=== PATIENT | female | born 1945 | race Caucasian/White ===

== ENCOUNTER → 2016-12-26 | Outpatient (CLI) | payer MEDICARE, OTHER ==
[2016-12-26 12:39] LABS: Basophils # (auto) 0 uL; Basophils % (auto) 0.2 % (0.0-2.0); Eosinophils # (auto) 0.2 uL; Eosinophils % (auto) 1.6 % (0.0-7.0); Hemoglobin 13.9 g/dL (12.2-16.2); Lymphocytes # (auto) 1.5 uL; Lymphocytes % (auto) 11.1 % (10.0-50.0); Mean Corpuscular Hemoglobin 29.5 pg (28.0-32.0); Mean Corpuscular Hgb Conc. 32.2 g/dL (32.0-36.0); Mean Corpuscular Volume 91.7 fL (80.0-100.0); Mean Platelet Volume 9.8 fL (7.4-10.4); Monocytes # (auto) 0.7 uL; Monocytes % (auto) 5.6 % (0.0-12.0); Neutrophils # (auto) 10.8 uL; Neutrophils % (auto) 81.5 % (37.0-80.0); Platelet Count (auto) 245 10^3/uL (140-450); Red Cell Distribution Width 15.4 % (11.6-16.0); White Blood Cell 13.2 10^3/uL (4.4-10.8)
[2016-12-26 13:14] LABS: Albumin 3.6 g/dL (3.4-5.0); BUN/Creatinine Ratio 15.3; Bilirubin, Direct 0.1 mg/dL (0-0.2); Bilirubin, Total 0.5 mg/dL (0.2-1.0); Calcium 8.7 mg/dL (8.5-10.1); Potassium 3.7 mmol/L (3.5-5.1); Total Protein 7.2 g/dL (6.4-8.2)
== END | disposition home or self-care (01) ==
LOC: LAB 08:59
PROVIDERS: ATTEND Internal Medicine Cardiovascular Disease
DX: I10 Essential (primary) hypertension (principal); E78.00 Pure hypercholesterolemia, unspecified; K74.1 Hepatic sclerosis; E11.9 Type 2 diabetes mellitus without complications; E03.9 Hypothyroidism, unspecified; D64.9 Anemia, unspecified; E55.9 Vitamin D deficiency, unspecified; N39.0 Urinary tract infection, site not specified
CPT/HCPCS: 36415; 80048; 80061; 80076; 82306; 83036; 84443; 85025

== ENCOUNTER → 2017-01-16 | Outpatient (CLI) | payer MEDICARE | END | disposition home or self-care (01) | LOC: HDHVI->DVH 15:07 | PROVIDERS: ATTEND Internal Medicine Cardiovascular Disease | DX: J44.9 Chronic obstructive pulmonary disease, unspecified (principal); I10 Essential (primary) hypertension; M19.90 Unspecified osteoarthritis, unspecified site | CPT/HCPCS: 93306 ==

== ENCOUNTER → 2017-02-05 | Outpatient (CLI) | payer MEDICARE ==
[2017-02-05 12:42] LABS: BUN/Creatinine Ratio 13.3; Calcium 9.3 mg/dL (8.5-10.1)
[2017-02-05 17:00] LABS: Urine Bilirubin Negative (Negative); Urine Blood Negative /uL (Negative); Urine Color Colorless (Yellow); Urine Glucose Normal (Normal); Urine Ketone Negative (Negative); Urine Nitrite Negative (Negative); Urine Urobilinogen Normal (Negative)
== END | disposition home or self-care (01) ==
LOC: LAB 09:01
PROVIDERS: ATTEND Internal Medicine Cardiovascular Disease
DX: I10 Essential (primary) hypertension (principal); E11.9 Type 2 diabetes mellitus without complications
CPT/HCPCS: 36415; 80048; 81003; 83036; 87086

== ENCOUNTER → 2017-04-03 | Outpatient (CLI) | payer MEDICARE ==
[2017-04-03 16:23] LABS: Basophils # (auto) 0 uL; Basophils % (auto) 0.4 % (0.0-2.0); CONDITION Y; Eosinophils # (auto) 0.2 uL; Eosinophils % (auto) 1.9 % (0.0-7.0); Hematocrit 42.1 % (36.0-46.0); Hemoglobin 13.9 g/dL (12.2-16.2); Lymphocytes # (auto) 1.8 uL; Lymphocytes % (auto) 21.7 % (10.0-50.0); Mean Corpuscular Hemoglobin 28.8 pg (28.0-32.0); Mean Corpuscular Hgb Conc. 33.1 g/dL (32.0-36.0); Mean Corpuscular Volume 86.9 fL (80.0-100.0); Mean Platelet Volume 9.7 fL (7.4-10.4); Monocytes % (auto) 11.4 % (0.0-12.0); Neutrophils # (auto) 5.4 uL; Neutrophils % (auto) 64.6 % (37.0-80.0); Platelet Count (auto) 250 10^3/uL (140-450); Red Cell Distribution Width 15.9 % (11.6-16.0); White Blood Cell 8.4 10^3/uL (4.4-10.8)
[2017-04-03 16:45] LABS: BUN/Creatinine Ratio 23.1; Bilirubin, Total 0.6 mg/dL (0.2-1.0); Total Protein 7.4 g/dL (6.4-8.2)
== END | disposition home or self-care (01) ==
LOC: LAB 12:30
PROVIDERS: ATTEND Internal Medicine Cardiovascular Disease
DX: I10 Essential (primary) hypertension (principal); D64.9 Anemia, unspecified; R70.0 Elevated erythrocyte sedimentation rate; R79.82 Elevated C-reactive protein (CRP)
CPT/HCPCS: 36415; 80053; 85025; 85652; 86141

== ENCOUNTER → 2017-05-21 | Outpatient (CLI) | payer MEDICARE | END | disposition home or self-care (01) | LOC: Rad HDHVI 13:56 | PROVIDERS: ATTEND Internal Medicine Cardiovascular Disease | DX: I87.2 Venous insufficiency (chronic) (peripheral) (principal); R00.2 Palpitations | CPT/HCPCS: 93306 ==

== ENCOUNTER → 2017-06-02 | Outpatient (CLI) | payer MEDICARE ==
[~2017-06-02] VITALS: Ht 160 cm; Wt 78.5 kg
[~2017-06-02] MED LIST: ADENOSINE 66 MG in GIVE UN-DILUTED 0 ML IV ONE; ADENOSINE 90 MG/30 ML INJ IV ONE
== END | disposition home or self-care (01) ==
LOC: Rad HDHVI 13:40
PROVIDERS: ATTEND Internal Medicine Cardiovascular Disease
DX: I10 Essential (primary) hypertension (principal); J44.9 Chronic obstructive pulmonary disease, unspecified
CPT/HCPCS: 78452; 93005; 96374; 96375; A9500; J0153

== ENCOUNTER → 2017-07-04 | Outpatient (CLI) | payer MEDICARE ==
[~2017-07-04] VITALS: Ht 160 cm; Wt 78.9 kg
[~2017-07-04] MED LIST changes: -ADENOSINE 66 MG in GIVE UN-DILUTED 0 ML IV ONE; -ADENOSINE 90 MG/30 ML INJ IV ONE; +ASPI325T4 PO; +CHOL20007 PO; +CHOLCAP4 OR; +CLOP75TA41 PO; +DOXY100C2 PO; +ESCI20TA PO; +PANT40TA2 PO; +POTA10TA51 PO
[2017-07-04 09:30] VITALS: BP 109/51
[2017-07-04 10:00] VITALS: BP 107/61
[2017-07-04 13:06] LABS: Basophils # (auto) 0.1 uL; Basophils % (auto) 0.7 % (0.0-2.0); Eosinophils # (auto) 0.2 uL; Eosinophils % (auto) 2.4 % (0.0-7.0); Hematocrit 43.3 % (36.0-46.0); Hemoglobin 14.4 g/dL (12.2-16.2); Lymphocytes % (auto) 24.1 % (10.0-50.0); Mean Corpuscular Hemoglobin 30.3 pg (28.0-32.0); Mean Corpuscular Hgb Conc. 33.2 g/dL (32.0-36.0); Mean Corpuscular Volume 91.3 fL (80.0-100.0); Mean Platelet Volume 9.5 fL (6.9-10.8); Monocytes # (auto) 1.1 uL; Monocytes % (auto) 12.8 % (0.0-12.0); Nucleated Red Blood Cells % 0.3 %; Platelet Count (auto) 201 10^3/uL (140-450); White Blood Cell 8.3 10^3/uL (4.4-10.8)
[2017-07-04 13:15] LABS: INR 0.98 (0.9-1.15); Partial Thromboplastin Time 23.3 sec (22.64-33.71); Prothrombin Time 10.7 sec (9.37-12.3)
[2017-07-04 13:18] LABS: BUN/Creatinine Ratio 20.9; Calcium 8.9 mg/dL (8.5-10.1)
== END | disposition home or self-care (01) ==
LOC: Rad HDHVI 09:06
PROVIDERS: ATTEND Internal Medicine Cardiovascular Disease
DX: Z01.818 Encounter for other preprocedural examination (principal); I10 Essential (primary) hypertension; D64.9 Anemia, unspecified; R79.1 Abnormal coagulation profile
CPT/HCPCS: 36415; 71020; 80048; 85025; 85610; 85730; 93005; G0463

== ENCOUNTER 2017-07-08 12:11 | Day surgery (SDC) | payer MEDICARE ==
[2017-07-08] MEDS ORDERED: LIDOCAINE 2%HCL (LOCAL ANESTH.) INJ 20ML MDV ONE (12:38)
[2017-07-08] MEDS ORDERED: IOHEXOL 350 MG/ML 100ML IJ ONE (12:38)
[2017-07-08] MEDS ORDERED: fentaNYL CITRATE 100 MCG/2 ML VL ONE (14:52)
[2017-07-08] MEDS ORDERED: MIDAZOLAM HCL 1MG/1ML-2 ML VIAL ONE (14:52)
[2017-07-08] MEDS ORDERED: SODIUM CHL 0.9% 0 ML ONE (14:55)
[2017-07-08] MEDS ORDERED: ANGIOMAX 250 MG VIAL IV ONE (14:55)
[2017-07-08] MEDS ORDERED: cloNIDine HCL 0.1 MG TAB ONE (16:39)
[2017-07-08] MEDS ORDERED: cloNIDine HCL 0.1 MG TAB PO ONE (16:45)
== END 2017-07-08 17:30 | disposition home or self-care (01) ==
LOC: CATH 12:11
PROVIDERS: ATTEND Internal Medicine Cardiovascular Disease
DX: R94.39 Abnormal result of other cardiovascular function study (principal); I11.9 Hypertensive heart disease without heart failure; J44.9 Chronic obstructive pulmonary disease, unspecified; Z87.891 Personal history of nicotine dependence
CPT/HCPCS: 93458; C1894; J1644; J2250; J3010; J7030; Q9967; 99152; 99153

== ENCOUNTER → 2017-11-26 | Outpatient (CLI) | payer MEDICARE ==
[~2017-11-26] VITALS: Ht 160 cm; Wt 82.6 kg
[~2017-11-26] MED LIST changes: +ADENOSINE 69 MG in GIVE UN-DILUTED 0 ML IV ONE; +ADENOSINE 90 MG/30 ML INJ IV ONE
== END | disposition home or self-care (01) ==
LOC: Rad HDHVI 10:46
PROVIDERS: ATTEND Internal Medicine Cardiovascular Disease
DX: I10 Essential (primary) hypertension (principal); E78.5 Hyperlipidemia, unspecified; F32.9 Major depressive disorder, single episode, unspecified; J44.9 Chronic obstructive pulmonary disease, unspecified; E11.9 Type 2 diabetes mellitus without complications
CPT/HCPCS: 78452; 93005; 96374; 96375; A9500; J0153

== ENCOUNTER → 2017-12-11 | Outpatient (CLI) | payer MEDICARE ==
[~2017-12-11] MED LIST changes: -ADENOSINE 69 MG in GIVE UN-DILUTED 0 ML IV ONE; -ADENOSINE 90 MG/30 ML INJ IV ONE; +IOHEXOL 350 MG/ML 100ML IJ ONE; +METOPROLOL TARTRATE 1MG/1ML-5ML VIAL IV ONE; +METOPROLOL TARTRATE 1MG/1ML-5ML VIAL IV SCH; +NITROGLYCERIN 0.4 MG SL TAB SL ONE
[2017-12-11 09:05] VITALS: BP 135/71
[2017-12-11 11:20] VITALS: BP 134/59
== END | disposition home or self-care (01) ==
LOC: Rad HDHVI 08:57
PROVIDERS: ATTEND Internal Medicine Cardiovascular Disease
DX: J44.9 Chronic obstructive pulmonary disease, unspecified (principal); I10 Essential (primary) hypertension; M19.90 Unspecified osteoarthritis, unspecified site; I25.10 Atherosclerotic heart disease of native coronary artery without angina pectoris
CPT/HCPCS: 75574; 82565; 96374; 96375; G0463; Q9967

== ENCOUNTER → 2018-03-06 | Outpatient (CLI) | payer MEDICARE ==
[~2018-03-06] MED LIST changes: -METOPROLOL TARTRATE 1MG/1ML-5ML VIAL IV ONE; -METOPROLOL TARTRATE 1MG/1ML-5ML VIAL IV SCH; -NITROGLYCERIN 0.4 MG SL TAB SL ONE
[2018-03-06 10:17] VITALS: BP 105/54
[2018-03-06 10:50] VITALS: BP 122/70
== END | disposition home or self-care (01) ==
LOC: Rad HDHVI 10:04
PROVIDERS: ATTEND Internal Medicine
DX: K57.30 Diverticulosis of large intestine without perforation or abscess without bleeding (principal); K44.9 Diaphragmatic hernia without obstruction or gangrene; I70.0 Atherosclerosis of aorta; E11.9 Type 2 diabetes mellitus without complications; J44.9 Chronic obstructive pulmonary disease, unspecified; I10 Essential (primary) hypertension; E78.5 Hyperlipidemia, unspecified; E03.9 Hypothyroidism, unspecified; E78.00 Pure hypercholesterolemia, unspecified; Z87.891 Personal history of nicotine dependence
CPT/HCPCS: 74177; 82565; G0463; Q9967

== ENCOUNTER → 2018-05-28 | Outpatient (CLI) | payer MEDICARE ==
[~2018-05-28] MED LIST changes: -IOHEXOL 350 MG/ML 100ML IJ ONE
[2018-05-28 16:43] LABS: Albumin 3.3 g/dL (3.4-5.0); BUN/Creatinine Ratio 12.6; Bilirubin, Total 0.4 mg/dL (0.2-1.0); Calcium 8.7 mg/dL (8.5-10.1); Potassium 4.3 mmol/L (3.5-5.1); Total Protein 7.3 g/dL (6.4-8.2); Uric Acid 10.9 mg/dL (2.6-6.0)
== END | disposition home or self-care (01) ==
LOC: LAB 12:40
PROVIDERS: ATTEND Internal Medicine
DX: I10 Essential (primary) hypertension (principal); M10.9 Gout, unspecified; R70.0 Elevated erythrocyte sedimentation rate; R79.82 Elevated C-reactive protein (CRP)
CPT/HCPCS: 36415; 80053; 84550; 85652; 86141

== ENCOUNTER 2018-09-16 11:26 | Emergency (ER) | payer MEDICARE ==
[~2018-09-16] VITALS: Ht 160 cm; Wt 79.8 kg
[2018-09-16 13:43] LABS: Basophils # (auto) 0.1 uL; Basophils % (auto) 0.9 % (0.0-2.0); Eosinophils # (auto) 0.1 uL; Eosinophils % (auto) 1.1 % (0.0-7.0); Hematocrit 46.1 % (36.0-46.0); Hemoglobin 15.1 g/dL (12.2-16.2); Lymphocytes # (auto) 1.9 uL; Lymphocytes % (auto) 19.7 % (10.0-50.0); Mean Corpuscular Hemoglobin 30.9 pg (28.0-32.0); Mean Corpuscular Hgb Conc. 32.7 g/dL (32.0-36.0); Mean Corpuscular Volume 94.5 fL (80.0-100.0); Monocytes % (auto) 11.1 % (0.0-12.0); Neutrophils # (auto) 6.4 uL; Neutrophils % (auto) 67.2 % (37.0-80.0); Nucleated Red Blood Cells % 0.1 %; Platelet Count (auto) 219 10^3/uL (140-450); Red Blood Cells 4.88 10^6/uL (4.0-5.20); Red Cell Distribution Width 17.5 % (11.8-14.3); White Blood Cell 9.5 10^3/uL (4.4-10.8)
[2018-09-16 14:02] LABS: Magnesium 2.1 mg/dL (1.6-2.6)
[2018-09-16] MEDS ORDERED: ONDANSETRON HCL 4 MG/2 ML VIAL IV ONE (14:15)
[2018-09-16] MEDS ORDERED: PANTOPRAZOLE 40 MG/10 ML VIAL IV ONE (14:30)
[2018-09-16 14:46] LABS: Urine Bacteria FEW /hpf (None Seen); Urine Blood Negative /uL (Negative); Urine Hyaline Cast FEW /lpf (0 - 2); Urine Specific Gravity 1.018 (1.001-1.035); Urine WBC 7 /hpf (0 - 5); Urine WBC Clumps PRESENT /hpf (None Seen)
[2018-09-16] MEDS ORDERED: cefTRIAXone 1GM/50ML D5W 50 ML IV ONE (15:15)
[2018-09-16 15:52] LABS: Anion Gap 8 (5-15); Blood Urea Nitrogen 29 mg/dL (7-18); Carbon Dioxide 27 mmol/L (21-32); Chloride 107 mmol/L (98-107); Glucose 90 mg/dL (74-106); Potassium 3.8 mmol/L (3.5-5.1); Sodium 142 mmol/L (136-145)
[2018-09-16 15:53] LABS: Alanine Aminotransferase 19 U/L (13-56); Albumin 3.3 g/dL (3.4-5.0); Alkaline Phosphatase 109 U/L (45-117); Aspartate Aminotransferase 20 U/L (15-37); Bilirubin, Total 0.5 mg/dL (0.2-1.0); Calcium 8.6 mg/dL (8.5-10.1); GFR African American 46 mL/min; GFR Non-African American 38 mL/min; Total Protein 6.2 g/dL (6.4-8.2)
[2018-09-16 19:33] VITALS: BP 151/84
== END 2018-09-16 19:51 | disposition home or self-care (01) ==
LOC: ER 11:31
DX: N39.0 Urinary tract infection, site not specified (principal); K57.90 Diverticulosis of intestine, part unspecified, without perforation or abscess without bleeding; K21.9 Gastro-esophageal reflux disease without esophagitis; E78.00 Pure hypercholesterolemia, unspecified; I10 Essential (primary) hypertension; Z79.2 Long term (current) use of antibiotics; Z79.01 Long term (current) use of anticoagulants; Z79.82 Long term (current) use of aspirin; Z79.899 Other long term (current) drug therapy; Z88.0 Allergy status to penicillin; Z88.8 Allergy status to other drugs, medicaments and biological substances
CPT/HCPCS: 36415; 71045; 74176; 80053; 81001; 82150; 83690; 83735; 84484; 85025; 93005; 94761; 96365; 96375; 99284; C9113; J0696; J2405

== ENCOUNTER → 2018-10-20 | Outpatient (CLI) | payer MEDICARE ==
[2018-10-20 16:24] LABS: Urine Blood Negative /uL (Negative); Urine Specific Gravity 1.015 (1.001-1.035)
== END | disposition home or self-care (01) ==
LOC: LAB 14:54
PROVIDERS: ATTEND Internal Medicine Cardiovascular Disease
DX: N39.0 Urinary tract infection, site not specified (principal)
CPT/HCPCS: 81003; 87086

== ENCOUNTER → 2018-11-06 | Day surgery (SDC) | payer MEDICARE ==
[2018-11-03 10:22] LABS: Basophils # (auto) 0.1 uL; Basophils % (auto) 1.1 % (0.0-2.0); Eosinophils # (auto) 0.3 uL; Eosinophils % (auto) 3.3 % (0.0-7.0); Hematocrit 42.1 % (36.0-46.0); Hemoglobin 14.2 g/dL (12.2-16.2); Lymphocytes # (auto) 1.8 uL; Lymphocytes % (auto) 23.9 % (10.0-50.0); Mean Corpuscular Hemoglobin 31.7 pg (28.0-32.0); Mean Corpuscular Hgb Conc. 33.7 g/dL (32.0-36.0); Mean Corpuscular Volume 94.2 fL (80.0-100.0); Monocytes # (auto) 0.8 uL; Monocytes % (auto) 10.3 % (0.0-12.0); Neutrophils # (auto) 4.7 uL; Neutrophils % (auto) 61.4 % (37.0-80.0); Platelet Count (auto) 186 10^3/uL (140-450); Red Blood Cells 4.47 10^6/uL (4.0-5.20); Red Cell Distribution Width 15.8 % (11.8-14.3); White Blood Cell 7.7 10^3/uL (4.4-10.8)
[2018-11-03 10:38] LABS: INR 0.93 (0.9-1.15); Partial Thromboplastin Time 26.1 sec (23.78-33.04)
[2018-11-03 10:41] LABS: Urine Bacteria NONE SEEN /hpf (None Seen); Urine Blood Negative /uL (Negative); Urine Hyaline Cast FEW /lpf (0 - 2); Urine Specific Gravity 1.012 (1.001-1.035); Urine WBC 1 /hpf (0 - 5); Urine WBC Clumps PRESENT /hpf (None Seen)
[2018-11-03 10:42] LABS: Albumin 3.6 g/dL (3.4-5.0); Calcium 8.7 mg/dL (8.5-10.1); Potassium 4.3 mmol/L (3.5-5.1)
[2018-11-03 10:46] LABS: BUN/Creatinine Ratio 15.1; Bilirubin, Total 0.3 mg/dL (0.2-1.0)
[~2018-11-06] VITALS: Ht 157.5 cm; Wt 80.7 kg
[~2018-11-06] MED LIST changes: +ALL300T PO; -CHOLCAP4 OR; +COLC1TAB3 PO; +DEXL60CA3 PO; +DICY20TA66 PO; -ESCI20TA PO; +FURO40TA PO; +GLYCOPYRROLATE 0.2 MG/ML 1ML VIAL ONE; +HYDROmorphone HCL 2 MG/ML VL IV PRN; +LIDOCAINE 1% INJ PF 5ML AMP ONE; +MIDAZOLAM HCL 1MG/1ML-2 ML VIAL ONE; +NALOXONE HCL 0.4 MG/ML VIAL IV PRN; +ONDANSETRON HCL 4 MG/2 ML VIAL IV ONE; +PROPOFOL 10 MG/ML 20 ML IV ONE; +TIOT1AER IN; +VORT10TA PO; +diphenhdrAMINE HCL 50 MG/1 ML VL ONE
[2018-11-06 11:32] VITALS: BP 123/82
== END | disposition home or self-care (01) ==
LOC: GI 09:35
PROVIDERS: ATTEND Internal Medicine Gastroenterology
DX: K44.9 Diaphragmatic hernia without obstruction or gangrene (principal); K21.9 Gastro-esophageal reflux disease without esophagitis; E66.9 Obesity, unspecified; J44.9 Chronic obstructive pulmonary disease, unspecified; M19.90 Unspecified osteoarthritis, unspecified site; Z86.73 Personal history of transient ischemic attack (TIA), and cerebral infarction without residual deficits; Z88.5 Allergy status to narcotic agent; Z88.0 Allergy status to penicillin; Z88.6 Allergy status to analgesic agent; Z68.32 Body mass index [BMI] 32.0-32.9, adult; Z87.891 Personal history of nicotine dependence; Z98.890 Other specified postprocedural states
CPT/HCPCS: 36415; 80053; 81001; 85025; 85610; 85730; A6257; J1200; J2250; J2704; J7030

== ENCOUNTER → 2018-12-10 | Outpatient (CLI) | payer MEDICARE ==
[~2018-12-10] MED LIST changes: -GLYCOPYRROLATE 0.2 MG/ML 1ML VIAL ONE; -HYDROmorphone HCL 2 MG/ML VL IV PRN; -LIDOCAINE 1% INJ PF 5ML AMP ONE; -MIDAZOLAM HCL 1MG/1ML-2 ML VIAL ONE; -NALOXONE HCL 0.4 MG/ML VIAL IV PRN; -ONDANSETRON HCL 4 MG/2 ML VIAL IV ONE; -PROPOFOL 10 MG/ML 20 ML IV ONE; -diphenhdrAMINE HCL 50 MG/1 ML VL ONE
== END | disposition home or self-care (01) ==
LOC: XY 09:41
PROVIDERS: ATTEND Internal Medicine Gastroenterology
DX: K30 Functional dyspepsia (principal)
CPT/HCPCS: 78264; A9541

== ENCOUNTER 2023-11-28 18:37 | Inpatient (IN) | payer MEDICARE, OTHER ==
[~2023-11-28] VITALS: Ht 157.5 cm; Wt 84.7 kg
[~2023-11-28 18:37] MED LIST changes: -CLOP75TA41 PO; +CLOP75TA70 PO; -DEXL60CA3 PO; +DEXL60CA4 PO; +DICY20TA PO; -DICY20TA66 PO; -DOXY100C2 PO; +DOXY100C4 PO; +FURO1TAB31 PO; -FURO40TA PO
[2023-11-28] MEDS ORDERED: ACETAMINOPHEN 325 MG TAB PO PRN (19:15)
[2023-11-28] MEDS ORDERED: hydrALAZINE HCL 10 MG TAB PO PRN (19:15)
[2023-11-28] MEDS ORDERED: MELATONIN 5 MG TAB PO PRN (19:15)
[2023-11-28] MEDS ORDERED: ONDANSETRON HCL 4 MG/2 ML VIAL IV PRN (19:15)
[2023-11-28] MEDS ORDERED: HYDROcodone-ACET 5/325MG TAB PO PRN (19:15)
[2023-11-28 19:32] VITALS: BP 126/39; PULSE 69; RESP 18; TEMP 98.8; O2SAT 96
[2023-11-28] MEDS ORDERED: SIMV20TA20 PO (21:33)
[2023-11-28] MEDS ORDERED: ASCO500T11 PO (21:33)
[2023-11-28] MEDS ORDERED: FLUT1AER3 IN (21:33)
[2023-11-28] MEDS ORDERED: CLOP75TA28 PO (21:33)
[2023-11-28] MEDS ORDERED: FAMO20TA10 PO (21:33)
[2023-11-28] MEDS ORDERED: SERT25TA84 PO (21:33)
[2023-11-28 21:53] VITALS: PULSE 75; RESP 18; O2SAT 96
[2023-11-28] MEDS: IPRATROPIUM BROM 0.5 MG/2.5ML INH SOL NEB SCH (21:53)
[2023-11-28] MEDS: ALBUTEROL SULF 2.5 MG/0.5ML(0.5%) NEB SOLN NEB PRN (21:53)
[2023-11-28 21:59] VITALS: PULSE 78; RESP 18; O2SAT 98
[2023-11-28 22:00] VITALS: BP 126/39; PULSE 69; RESP 18; TEMP 98.8; O2SAT 96
[2023-11-28] MEDS: TEMAZEPAM 15 MG CAP PO SCH (22:34)
[2023-11-28 23:00] VITALS: BP 126/39; PULSE 75; RESP 18; TEMP 98.8; O2SAT 95
[2023-11-29] VITALS (21 sets, daily range): BP systolic 93–124; BP diastolic 48–74; PULSE 67–98; RESP 16–76; TEMP 97.8–98.4; O2SAT 18–99
[2023-11-29] MEDS: methylPREDNISolone SOD SUCC 40 MG/ML VL IV SCH (01:53)
[2023-11-29 07:44] LABS: Basophils # (auto) 0 10 ^3/uL (0-0.2); Basophils % (auto) 0.3 % (0.0-2.0); Eosinophils # (auto) 0 10 ^3/uL (0-0.8); Eosinophils % (auto) 0.4 % (0.0-7.0); Hemoglobin 11.1 g/dL (12.2-16.2); Lymphocytes # (auto) 0.5 10 ^3/uL (0.4-5.4); Lymphocytes % (auto) 5.7 % (10.0-50.0); Mean Corpuscular Hemoglobin 28.4 pg (28.0-32.0); Mean Corpuscular Hgb Conc. 31.8 g/dL (32.0-36.0); Mean Corpuscular Volume 89.2 fL (80.0-100.0); Monocytes # (auto) 0.2 10 ^3/uL (0-1.3); Monocytes % (auto) 2.4 % (0.0-12.0); Neutrophils # (auto) 8.6 10 ^3/uL (1.6-8.6); Neutrophils % (auto) 91.2 % (37.0-80.0); Nucleated Red Blood Cells % 0.1 %; Red Blood Cells 3.92 10^6/uL (4.0-5.20); White Blood Cell 9.5 10^3/uL (4.4-10.8)
[2023-11-29 07:58] LABS: Anion Gap 10 (5-15); Calcium 8.9 mg/dL (8.5-10.1); Carbon Dioxide 23 mmol/L (20-30); Chloride 106 mmol/L (98-107); Potassium 4.3 mmol/L (3.5-5.1); Sodium 139 mmol/L (136-145)
[2023-11-29 08:04] LABS: BUN/Creatinine Ratio 15.1 (10.0-20.0); Blood Urea Nitrogen 18 mg/dL (9-23); Glucose 165 mg/dL (74-106)
[2023-11-29] MEDS: PANTOPRAZOLE 40 MG/10 ML VIAL INJ IV SCH (09:47)
[2023-11-29] MEDS: AZITHROMYCIN 500MG/ 250ML 250 ML IV SCH (09:47)
[2023-11-29] MEDS: cefTRIAXone 1GM/50ML D5W 50 ML IV SCH (09:47)
[2023-11-29] MEDS: IBUPROFEN 400 MG TAB PO PRN (17:51)
[2023-11-30] VITALS (19 sets, daily range): BP systolic 98–121; BP diastolic 48–87; PULSE 60–77; RESP 16–24; TEMP 97.7–98.6; O2SAT 94–100
[2023-11-30] MEDS ORDERED: HYDROcodone-ACET 5/325MG TAB PO PRN (14:15)
[2023-11-30] MEDS: FAMOTIDINE 20 MG TAB PO SCH (20:43)
[2023-12-01] VITALS (12 sets, daily range): BP systolic 107–120; BP diastolic 50–63; PULSE 59–106; RESP 16–20; TEMP 97.6–98.4; O2SAT 91–99
[2023-12-01] MEDS: ASCORBIC ACID 500 MG TAB PO SCH (09:51)
[2023-12-01] MEDS: PANTOPRAZOLE 40 MG TAB PO SCH (09:51)
[2023-12-01] MEDS: CLOPIDOGREL BISULFATE 75 MG TAB PO SCH (09:51)
[2023-12-01] MEDS: SERTRALINE HCL 50 MG TAB PO SCH (09:51)
[2023-12-01] MEDS: CHOLECALCIFEROL (VITD3) 2,000 UNIT CAP/TAB PO SCH (09:51)
[2023-12-01] MEDS: FUROSEMIDE 40 MG TAB PO SCH (09:51)
[2023-12-01] MEDS ORDERED: PATIENTS OWN MEDICATION (Potassium Chloride (Potassium Chloride Cr) 20 MEQ) PO SCH (10:00)
[2023-12-01 10:30] LABS: Folate (Folic Acid) > 24.00 ng/mL (>5.38)
[2023-12-01] MEDS ORDERED: DOXY-286 PO (12:27)
[2023-12-01] MEDS ORDERED: METH4PAK PO (12:27)
[2023-12-02 05:07] LABS: RPR Non Reactive (Non Reactive)
== END 2023-12-01 19:09 | disposition home or self-care (01) | DRG 177 ==
LOC: TELE-WESTW 18:37 → WEST WING 12-01 12:18
PROVIDERS: ADMIT Nurse Practitioner Family; ATTEND Nurse Practitioner Family
DX: J15.69 Pneumonia due to other Gram-negative bacteria (principal); J96.21 Acute and chronic respiratory failure with hypoxia; J44.1 Chronic obstructive pulmonary disease with (acute) exacerbation; J44.0 Chronic obstructive pulmonary disease with (acute) lower respiratory infection; J15.9 Unspecified bacterial pneumonia; Z68.34 Body mass index [BMI] 34.0-34.9, adult; E66.9 Obesity, unspecified; E78.00 Pure hypercholesterolemia, unspecified; I65.29 Occlusion and stenosis of unspecified carotid artery; I11.0 Hypertensive heart disease with heart failure; I50.9 Heart failure, unspecified; Z86.73 Personal history of transient ischemic attack (TIA), and cerebral infarction without residual deficits; Z87.891 Personal history of nicotine dependence
CPT/HCPCS: 36415; 80048; 82607; 82746; 84443; 85025; 86592; 87081; 94640; 97110; 97116; 97163; 97530; C9113; G0378

== ENCOUNTER → 2024-10-14 | Outpatient (CLI) | payer OTHER ==
[~2024-10-14] VITALS: Ht 157.5 cm; Wt 78.0 kg
[~2024-10-14] MED LIST changes: -ALL300T PO; +ASCO500T11 PO; -ASPI325T4 PO; +ASPI325T6 PO; +CLOP75TA28 PO; -CLOP75TA70 PO; -COLC1TAB3 PO; -DEXL60CA4 PO; -DICY20TA PO; +DOXY-286 PO; -DOXY100C4 PO; +FAMO20TA10 PO; +FLUT1AER3 IN; +METH4PAK PO; +POTA-36 PO; -POTA10TA51 PO; +SERT25TA84 PO; +SIMV20TA20 PO; -TIOT1AER IN; -VORT10TA PO
[2024-10-14] MEDS: REGADENOSON 0.4 MG/5 ML SYRG IV ONE ×2 (12:45→12:55)
--- NOTE | 2024-10-18 08:36 | DVHSR ---
APPROVED REPORT Exam: Nuclear Stress Test Indication: Chest pain BMI: 0 Medical History Medical History: CHF, COPD, LVH, Murmur Allergies: PCN, Latex, ASA, Hydrocodone, Acetaminophen Stress Test Details Stress Test: Pharmacologic stress testing performed using 0.4 mg of regadenoson per 5 mL given IV ov er 10 seconds. HR Resting HR: 70 bpmMax Heart Rate (APMHR): 141.018023 bpm Max HR Achieved: 80 bpmTarget HR (85% APMHR): 119.565717 bpm % of APMHR: 56.74 Recovery HR: 80 bpm BP Resting BP: 108/69 mmHg Recovery BP: 94/65 mmHg ECG Resting ECG: Sinus Rhythm Clinical Reason for Termination: Completed protocol Nurse Comments Recieved pt. from [facility]. A/Ox4 on RA. Connected to financial institution treasurer, VS stable. PIV flushes well. Reviewed POC. Pt. verbalized understanding of procedure including risks and side ef fects, agrees for stress testing. Lexiscan stress test performed per protocol. [facility] tech administered Cardiolite. Pt. tolerated well . Pt. stable, no change on exam. VS returned to baseline. Transferred to [facility] via wheelchair w/ te ch. Stress ECG Conclusion no severe stress induced ischemia noted normal lvef 84% NM EXAM: Myocardial Perfusion REST/STRESS Imaging Protocol: Rest Tc-99m/Stress Tc-99m 1 day Resting Data Rest SPECT myocardial perfusion imaging was performed in supine position 60 minutes following the int ravenous injection of 15 mCi of Tc-99m Sestamibi. Time of rest injection: 1130 Date: 10/14/2024 Time of rest imagin Date: 10/14/2024 Administration Route: IV Administration Site: Right AC Pharmacologic Stress Pharmacologic stress test was performed by injecting Regadenoson 0.4 mg IV push followed by the intra venous injection of 31.1 mCi of Tc-99m Sestamibi. Time of stress injection: 1257 Date: 10/14/2024 Time of stress imagin Date: 10/14/2024 Administration Route: IV Administration Site: Right AC Gated Stress SPECT was performed 60 minutes after stress injection. The images were gated to evaluate regional wall motion and calculate left ventricular ejection fracti on. Stress only was performed in the Supine position. Nuclear Conclusion ECG Findings: negative for ischemia Clinical Findings: negative for ischemia Nuclear Findings: negative for ischemia no severe stress induced ischemia noted normal lvef 84%
== END | disposition home or self-care (01) ==
LOC: XYW 10:33
PROVIDERS: ATTEND Internal Medicine
DX: R07.9 Chest pain, unspecified (principal); R06.02 Shortness of breath; I50.9 Heart failure, unspecified; J44.9 Chronic obstructive pulmonary disease, unspecified; Z88.5 Allergy status to narcotic agent; Z88.6 Allergy status to analgesic agent
CPT/HCPCS: 93017; J2785; 78452

== ENCOUNTER 2025-05-22 21:25 | Emergency (ER) | payer OTHER, MEDICAID ==
[~2025-05-22] VITALS: Ht 157.5 cm; Wt 73.6 kg
[2025-05-22 23:56] LABS: Hematocrit 37.2 % (36.0-46.0); Hemoglobin 12.3 g/dL (12.2-16.2); Mean Corpuscular Hemoglobin 30.0 pg (28.0-32.0); Mean Corpuscular Volume 90.6 fL (80.0-100.0); Nucleated Red Blood Cells % 0.0 %
[2025-05-23 00:12] LABS: Alanine Aminotransferase 11 U/L (7-40); Albumin 4.5 g/dL (3.2-4.8); Alkaline Phosphatase 81 U/L (46-116); Anion Gap 10 (5-15); BUN/Creatinine Ratio 14.8 (10.0-20.0); Calcium 9.1 mg/dL (8.7-10.4); Carbon Dioxide 23 mmol/L (20-31); Total Protein 6.7 g/dL (5.7-8.2)
[2025-05-23 00:18] LABS: Bilirubin, Total 0.2 mg/dL (0.2-1.0); Blood Urea Nitrogen 26 mg/dL (9-23); Chloride 112 mmol/L (98-107); Glucose 116 mg/dL (74-106); Potassium 5.2 mmol/L (3.5-5.1); Sodium 145 mmol/L (136-145)
--- NOTE | 2025-05-23 01:18 | ED.PDOC ---
HPI Comments 79-year-old female presents to the ED with daughter chief complaint bilateral lower extremity swelling. Patient reports symptoms started one week ago she notes her primary care provider changed her Lasix to an unknown other medication due to the swelling and Lasix not helping. Patient states she has been taking her medications as prescribed. She also reports increase in shortness of breath with exertion. Currently on home oxygen at 2 L/min. She reports history of CHF, and chronic renal failure stage IV. Patient denies chest pain, difficulty breathing, fever, chills, nausea, vomiting abdominal pain, recent ill contacts or travel. Chief Complaint: Lower Extremity Time Seen by MD: 23:07 Primary Care Provider: TIA Reviewed Notes: Nurses Notes, Medications, Allergies Allergies: Coded Allergies: Acetaminophen (Verified Allergy, Unknown, 10/14/24) Aspirin (Verified Allergy, Unknown, 10/14/24) Hydrocodone (Verified Allergy, Unknown, 10/14/24) Latex (Verified Allergy, Unknown, 10/14/24) Penicillins (Verified Allergy, Unknown, 10/14/24) Home Meds Active Scripts Bumetanide (Bumetanide) 2 Mg Tab, 1 MG PO BID for 14 Days, #28 TAB Prov:AARON RUIZ 05/23/25 Methylprednisolone (Medrol Dosepak) 4 Mg Keegan, 4 MG PO UD, #21 TAB UAD Prov:DARREN ROBERTSON MD 12/01/23 Doxycycline Hyclate (DOXYCYCLINE HYCLATE) 100 Mg Tab, 1 TAB PO BID, #14 TAB Prov:DARREN ROBERTSON MD 12/01/23 Reported Medications Simvastatin (Simvastatin) 20 Mg Tab, 20 MG PO for HIGH CHOLESTEROL, TAB 11/28/23 Famotidine (PEPCID TABLET) 20 Mg Tb, 1 TAB PO BID for ACID ENROLLMENT ADVISOR, #60 TAB 5 Refills 11/28/23 Aeovtqtxgzr-Ebldnmrelhjr-Dlndf (Trelegy Ellipta 100-62.5-25 Mcg/INH) 1 Aer Aer, 1 AER IN for LUNGS, AER 11/28/23 Ascorbic Acid (VITAMIN C TABLET) 500 Mg Tb, 1 TAB PO DAILY for SUPPLEMENT, #30 TAB 3 Refills 11/28/23 Clopidogrel Bisulfate (Plavix) 75 Mg Tab, 1 TAB PO DAILY for BLOOD THINNER, #90 TAB 1 Refill 11/28/23 Sertraline Hcl (Zoloft) 25 Mg Tab, 1 TAB PO DAILY for ANXIETY, #30 TAB 2 Refills 11/28/23 Furosemide (Lasix) 40 Mg Tab, 40 MG PO DAILY for WATER PILL, TAB 11/03/18 Cholecalciferol (VITAMIN D3) 2,000 Unit Tab, 1 TAB PO DAILY for VITAMIN, #90 TAB 3 Refills 07/04/17 Potassium Chloride (POTASSIUM CHLORIDE CR) 10 Meq Tb, 20 MEQ PO DAILY 07/04/17 Pantoprazole Sodium Sesquihydr (Protonix) 40 Mg Tab, 40 MG PO DAILY for ACID ENROLLMENT ADVISOR, #30 TAB 07/04/17 Aspirin (Aspirin) 325 Mg Tab, 325 MG PO DAILY for BLOOD THINNER, TAB 07/04/17 Information Source: Patient Mode of Arrival: Ambulatory Past Medical History PAST MEDICAL HISTORY: CHF, Depression, GERD, High Lipids, HTN Family History Family History: No family hx of HTN, Pt Confused Social History Smoker: Non-Smoker Alcohol: Denies ETOH Use Drugs: Denies Drug Use Lives In: Home Constitutional: denies: chills, diaphoresis, fatigue, fever, malaise, sweats, weakness, others EENTM: denies: blurred vision, double vision, ear bleeding, ear discharge, ear drainage, ear pain, ear ringing, eye pain, eye redness, hearing loss, mouth pain, mouth swelling, nasal discharge, nose bleeding, nose congestion, nose pain, photophobia, tearing, throat pain, throat swelling, voice changes, others Respiratory: reports: SOB with excertion; denies: cough, hemoptysis, orthopnea, SOB at rest, shortness of breath, stridor, wheezing, others Cardiovascular: reports: Dyspnea on exertion, edema; denies: chest pain, dizzy spells, diaphoresis, irregular heart beat, left arm pain, lightheadedness, palpitations, PND, syncope, others Gastrointestinal: denies: abdomen distended, abdominal pain, blood streaked bowels, constipated, diarrhea, dysphagia, difficulty swallowing, hematemesis, melena, nausea, poor appetite, poor fluid intake, rectal bleeding, rectal pain, vomiting, others Genitourinary: denies: abnormal vagina bleeding, burning, dyspareunia, dysuria, flank pain, frequency, hematuria, incontinence, pain, , vagina discharge, urgency, others Neurological: denies: dizziness, fainting, headache, left sided numbness, left sided weakness, numbness, paresthesia, pre-existing deficit, right sided numbness, right sided weakness, seizure, speech problems, tingling, tremors, weakness, others Musculoskeletal: denies: back pain, gout, joint pain, joint swelling, muscle pain, muscle stiffness, neck pain, others Integumetry: denies: bruises, change in color, change in hair/nails, dryness, laceration, lesions, lumps, rash, wounds, others Allergic/Immunocompromised: denies: Difficulty Healing, Frequent Infections, Hives, Itching, others Hematologic/Lymphatic: denies: anemia, blood clots, easy bleeding, easy bruising, swollen glands, others Endocrine: denies: excessive hunger, excessive sweating, excessive thirst, excessive urination, flushing, intolerance to cold, intolerance to heat, unexplained weight gain, unexplained weight loss, others Psychiatric: denies: anxiety, bipolar disorder, depression, hopeless, panic disorder, schizophrenia, sleepless, suicidal, others Physical Exam General Appearance: No Apparent Distress, Normal HEENT: Normal ENT Inspection, Pharynx Normal, TMs Normal Neck: Full Range of Motion, Normal Respiratory: Decreased Breath Sounds, No Respiratory Distress Cardiovascular: No JVD, No Murmur, No Gallop, Normal Peripheral Pulses, Regular Rate/Rhythm Breast Exam: Deferred Gastrointestinal: No Organomegaly, Non Tender, No Pulsatile Mass, Normal Bowel Sounds, Soft Genitalia: Deferred Pelvic: Deferred Rectal: Deferred Extremities: No calf tenderness, Normal capillary refill, Normal inspection, Normal range of motion, Non-tender, Pedal edema (Plus one pitting bilateral) Musculoskeletal : Apperance: Normal Neurologic: Alert, No Motor Deficits, Normal Affect, Normal Mood, No Sensory Deficits Cerebellar Function: Normal Reflexes: NOT DONE Skin: Dry, Normal Color, Warm Lymphatic: No Adenopathy Was a procedure done? Was a procedure done?: No CP Differential Dx Differential Diagnosis: Heart Failure, CA Differential Diagnosis: CHF Differential Diagnosis: Pneumonia X-Ray, Labs, Meds, VS Vital Signs Date Time Temp Pulse Resp B/P (MAP) Pulse Ox O2 Delivery O2 Flow Rate FiO2 05/23/25 05:45 97.9 70 20 147/70 (95) 96 97.9 05/23/25 05:00 147/62 05/23/25 02:38 77 05/23/25 01:15 98.8 63 20 113/74 (87) 94 98.8 05/22/25 21:30 95.5 64 18 110/68 97 95.5 Lab Test 05/23/25 02:28 05/23/25 01:29 05/22/25 23:41 Range/Units Troponin I High Sensitivity 6 7 </=34 ng/L White Blood Count 9.4 4.4-10.8 10^3/uL Red Blood Count 4.10 4.0-5.20 10^6/uL Hemoglobin 12.3 12.2-16.2 g/dL Hematocrit 37.2 36.0-46.0 % Mean Corpuscular Volume 90.6 80.0-100.0 fL Mean Corpuscular Hemoglobin 30.0 28.0-32.0 pg Mean Corpuscular Hemoglobin Concent 33.1 32.0-36.0 g/dL Red Cell Distribution Width 15.6 H 11.8-14.3 % Platelet Count 199 140-450 10^3/uL Mean Platelet Volume 9.2 6.9-10.8 fL Neutrophils (%) (Auto) 61.6 37.0-80.0 % Lymphocytes (%) (Auto) 22.6 10.0-50.0 % Monocytes (%) (Auto) 13.3 H 0.0-12.0 % Eosinophils (%) (Auto) 2.1 0.0-7.0 % Basophils (%) (Auto) 0.4 0.0-2.0 % Neutrophils # (Auto) 5.8 1.6-8.6 10 ^3/uL Lymphocytes # (Auto) 2.1 0.4-5.4 10 ^3/uL Monocytes # (Auto) 1.3 0-1.3 10 ^3/uL Eosinophils # (Auto) 0.2 0-0.8 10 ^3/uL Basophils # (Auto) 0 0-0.2 10 ^3/uL Nucleated Red Blood Cells 0.0 % Sodium Level 145 136-145 mmol/L Potassium Level 5.2 H 3.5-5.1 mmol/L Chloride Level 112 H 98-107 mmol/L Carbon Dioxide Level 23 20-31 mmol/L Anion Gap 10 5-15 Blood Urea Nitrogen 26 H 9-23 mg/dL Creatinine 1.76 H 0.550-1.02 mg/dL Glomerular Filtration Rate Calc 29 >90 mL/min BUN/Creatinine Ratio 14.8 10.0-20.0 Serum Glucose 116 H 74-106 mg/dL Calcium Level 9.1 8.7-10.4 mg/dL Total Bilirubin 0.2 0.2-1.0 mg/dL Aspartate Amino Transferase (AST) 20 13-40 U/L Alanine Aminotransferase (ALT) 11 7-40 U/L Alkaline Phosphatase 81 46-116 U/L B-Type Natriuretic Peptide 389.76 0-100 pg/mL Total Protein 6.7 5.7-8.2 g/dL Albumin 4.5 3.2-4.8 g/dL X-Ray, Labs, Meds, VS Comment COURSE: EXTERNAL MEDICAL RECORDS REVIEWED: [NONE] INDEPENDENT HISTORIANS: [NONE] SOCIAL DETERMINANTS OF HEALTH: [NONE] LABS ORDERED: CBC, CMP, BNP, TROPONIN, UA. REVIEWED AND INTERPRETED RESULTS: PENDING UA IMAGING ORDERED: PENDING CHEST X-RAY TREATMENTS ORDERED: NONE PROCEDURES PERFORMED: NONE PATIENT PLACED FOR ADMISSION FOR [facility] HOSPITALIST. HOSPITALIST SPOKE WITH PATIENT FROM [facility] AND HE RECOMMENDS PATIENT BEING DISCHARGED WITH BUMEX AND A FOLLOW UP WITH RENAL. CHILD'S PROVIDER MADE REFERRAL AN APPOINTMENT FOR PATIENT TO FOLLOW UP. PATIENT AGREES WITH DISCHARGE PLAN OF CARE. ADVISED ON ER RETURN PRECAUTIONS. RECOMMENDATIONS WAS TO SCRIPT TRIAL OF BUMEX TWICE DAILY. Time of 1ST Reevaluation: 23:00 Reevaluation 1ST: Unchanged Time of 2ND Reevaluation: 01:17 Reevaluation 2ND: Unchanged Time of 3RD Reevaluation: 05:08 Reevaluation 3RD: Improved Patient Education/Counseling: Diagnosis, Treatment, Prognosis, Need For Follow Up Family Education/Counseling: Diagnosis, Treatment, Prognosis, Need For Follow Up SEPSIS Sepsis Screen Date sepsis recognized/suspect: May 22, 2025 Time Sepsis recognized/suspect: 2133 Recent Procedure: No On Antibiotic Therapy: No Respiratory Rate >20: No Heart Rate >90: No Temp<36 C (96.8 F) or >38.3 C: No SBP <90 or MAP <65 mmHG: No New Acute Mental Status Change: No Is the patient on CPAP, BIPAP,: No Physician Orders Electrocardigram (05/23/25 01:18) Chest Two Views Routine (05/23/25 01:19) * Crane Crew Supervisor Consult (05/23/25 ) Vital Signs Date Time Temp Pulse Resp B/P (MAP) Pulse Ox O2 Delivery O2 Flow Rate FiO2 05/23/25 05:45 97.9 70 20 147/70 (95) 96 97.9 05/23/25 05:00 147/62 05/23/25 02:38 77 05/23/25 01:15 98.8 63 20 113/74 (87) 94 98.8 05/22/25 21:30 95.5 64 18 110/68 97 95.5 Laboratory Tests Test 05/22/25 23:41 White Blood Count 9.4 10^3/uL (4.4-10.8) Departure 1 Departure Time of Disposition: 01:22 Impression: Primary Impression: CHF (congestive heart failure) Qualified Codes: I50.9 - Heart failure, unspecified Additional Impressions: Renal failure (ARF), acute on chronic Qualified Codes: N17.9 - Acute kidney failure, unspecified; N18.4 - Chronic kidney disease, stage 4 (severe) Bilateral lower extremity edema Disposition: 01 HOME / SELF CARE / HOMELESS Condition: Stable e-Prescriptions Bumetanide (Bumetanide) 2 Mg Tab 1 MG PO BID for 14 Days, #28 TAB Prov: AARON RUIZ 05/23/25 Discharged With: Relative (DAUGHTER) Critical Care Note Critical Care Time?: No Stability Stability form required: No Heart Score Heart Score: Heart Score Response (Comments) Value History N/A 0 EKG N/A 0 Age >65 2 Risk Factors >3 or Hx ASHD 2 Troponin N/A 0 Total 4 AARON RUIZ May 23, 2025 01:18
--- NOTE | 2025-05-23 04:22 | DVH ---
XY CHEST TWO VIEWS ROUTINE CLINICAL HISTORY: SOB COMPARISON: None TECHNIQUE: Frontal and lateral view of the chest was obtained FINDINGS: Lines and Tubes: None Lungs: No focal consolidation. Bibasilar subsegmental atelectasis. pulmonary vascular congestion. Pleura: No effusion. No pneumothorax. Cardiomediastinal contours: Mild cardiomegaly. Bones: No acute osseous abnormality. IMPRESSION: 1. Mild pulmonary vascular congestion. Mild cardiomegaly. 2. No focal consolidations.
--- NOTE | 2025-05-23 04:54 | DVHINCON2 ---
CHRISTIE BERG NP 05/23/25 0454: Date of service: May 23, 2025 Referring Physician VIOLETTA Ruiz Reason for Consultation Medical management History of Present Illness 79-year-old female with past medical history of CHF, oxygen-dependent COPD on 2- 3 L nasal cannula, CKD stage 4 presents with complaints of bilateral lower extremity swelling x 1 week. Also endorsing mild exertional dyspnea. Patient endorses symptoms began when she was recently taken off her Lasix by her PCP. Has not been able to follow up with Cardiology. States her slab tripper is Dr. Cardeans. Patient continues to take 8 mEq potassium chloride. Has not followed up with Nephrology. During the emergency department evaluation CBC unremarkable W9.4, H&H 12.3/37.2, PLT 199. CMP Na 145, K5.2, BUN 26, creatinine 1.76, GFR 29, albumin 4.5, BNP 389, troponins-7/6. CXR impression read mild pulmonary vascular congestion. Mild cardiomegaly. No focal consolidations. At this time there are no complaints of fevers, chills, dizziness, syncope, worsening shortness of breath, chest pain, palpitations, nausea, vomiting, dysuria, abdominal pain. Past Medical History Oxygen dependent COPD, CHF, stroke, HLD, aneurysm, carotid artery occlusion Family History: Patient reports no known family medical history. Social History Denies EtOH, smoking, illicit drug use Allergies: Coded Allergies: Acetaminophen (Verified Allergy, Unknown, 10/14/24) Aspirin (Verified Allergy, Unknown, 10/14/24) Hydrocodone (Verified Allergy, Unknown, 10/14/24) Latex (Verified Allergy, Unknown, 10/14/24) Penicillins (Verified Allergy, Unknown, 10/14/24) Home Meds Active Scripts Bumetanide (Bumetanide) 2 Mg Tab, 1 MG PO BID for 14 Days, #28 TAB Prov:AARON RUIZ 05/23/25 Methylprednisolone (Medrol Dosepak) 4 Mg Keegan, 4 MG PO UD, #21 TAB UAD Prov:DARREN ROBERTSON MD 12/01/23 Doxycycline Hyclate (DOXYCYCLINE HYCLATE) 100 Mg Tab, 1 TAB PO BID, #14 TAB Prov:DARREN ROBERTSON MD 12/01/23 Reported Medications Simvastatin (Simvastatin) 20 Mg Tab, 20 MG PO for HIGH CHOLESTEROL, TAB 11/28/23 Famotidine (PEPCID TABLET) 20 Mg Tb, 1 TAB PO BID for ACID NURSING CLERK, #60 TAB 5 Refills 11/28/23 Vodqlmmilic-Dalxhhllaitd-Sglrf (Trelegy Ellipta 100-62.5-25 Mcg/INH) 1 Aer Aer, 1 AER IN for LUNGS, AER 11/28/23 Ascorbic Acid (VITAMIN C TABLET) 500 Mg Tb, 1 TAB PO DAILY for SUPPLEMENT, #30 TAB 3 Refills 11/28/23 Clopidogrel Bisulfate (Plavix) 75 Mg Tab, 1 TAB PO DAILY for BLOOD THINNER, #90 TAB 1 Refill 11/28/23 Sertraline Hcl (Zoloft) 25 Mg Tab, 1 TAB PO DAILY for ANXIETY, #30 TAB 2 Refills 11/28/23 Furosemide (Lasix) 40 Mg Tab, 40 MG PO DAILY for WATER PILL, TAB 11/03/18 Cholecalciferol (VITAMIN D3) 2,000 Unit Tab, 1 TAB PO DAILY for VITAMIN, #90 TAB 3 Refills 07/04/17 Potassium Chloride (POTASSIUM CHLORIDE CR) 10 Meq Tb, 20 MEQ PO DAILY 07/04/17 Pantoprazole Sodium Sesquihydr (Protonix) 40 Mg Tab, 40 MG PO DAILY for ACID NURSING CLERK, #30 TAB 07/04/17 Aspirin (Aspirin) 325 Mg Tab, 325 MG PO DAILY for BLOOD THINNER, TAB 07/04/17 Review of Systems Ten systems reviewed and negative except as per HPI Vital Signs Vital Signs Date Time Temp Pulse Resp B/P (MAP) Pulse Ox O2 Delivery O2 Flow Rate FiO2 05/23/25 02:38 77 05/23/25 01:15 98.8 20 113/74 (87) 94 98.8 Physical Exam GENERAL: Patient appearing stated age, in no acute distress. HEENT: Pupils equal and reactive to light and accommodation. Extraocular muscles intact. Mucous membranes moist. Conjunctivae pink. Anicteric sclerae. LUNGS: Bilateral air entry. No wheezes, rhonchi or rales. HEART: Regular rate and rhythm. Normal S1 and S2. ABDOMEN: BS normoactive, soft, nontender, and nondistended. No CVA tenderness. EXTREMITIES: No clubbing, cyanosis No calf tenderness. Pedal pulses 2+. Bilateral lower extremity nonpitting edema. NEUROLOGICAL: The patient is alert and oriented times 3. CN II-XII intact. No focal deficits on gross sensory or motor examination. Labs/Diagnostic Data Labs Test 05/23/25 02:28 05/22/25 23:41 Range/Units Troponin I High Sensitivity 6 </=34 ng/L White Blood Count 9.4 4.4-10.8 10^3/uL Red Blood Count 4.10 4.0-5.20 10^6/uL Hemoglobin 12.3 12.2-16.2 g/dL Hematocrit 37.2 36.0-46.0 % Mean Corpuscular Volume 90.6 80.0-100.0 fL Mean Corpuscular Hemoglobin 30.0 28.0-32.0 pg Mean Corpuscular Hemoglobin Concent 33.1 32.0-36.0 g/dL Red Cell Distribution Width 15.6 H 11.8-14.3 % Platelet Count 199 140-450 10^3/uL Mean Platelet Volume 9.2 6.9-10.8 fL Neutrophils (%) (Auto) 61.6 37.0-80.0 % Lymphocytes (%) (Auto) 22.6 10.0-50.0 % Monocytes (%) (Auto) 13.3 H 0.0-12.0 % Eosinophils (%) (Auto) 2.1 0.0-7.0 % Basophils (%) (Auto) 0.4 0.0-2.0 % Neutrophils # (Auto) 5.8 1.6-8.6 10 ^3/uL Lymphocytes # (Auto) 2.1 0.4-5.4 10 ^3/uL Monocytes # (Auto) 1.3 0-1.3 10 ^3/uL Eosinophils # (Auto) 0.2 0-0.8 10 ^3/uL Basophils # (Auto) 0 0-0.2 10 ^3/uL Nucleated Red Blood Cells 0.0 % Sodium Level 145 136-145 mmol/L Potassium Level 5.2 H 3.5-5.1 mmol/L Chloride Level 112 H 98-107 mmol/L Carbon Dioxide Level 23 20-31 mmol/L Anion Gap 10 5-15 Blood Urea Nitrogen 26 H 9-23 mg/dL Creatinine 1.76 H 0.550-1.02 mg/dL Glomerular Filtration Rate Calc 29 >90 mL/min BUN/Creatinine Ratio 14.8 10.0-20.0 Serum Glucose 116 H 74-106 mg/dL Calcium Level 9.1 8.7-10.4 mg/dL Total Bilirubin 0.2 0.2-1.0 mg/dL Aspartate Amino Transferase (AST) 20 13-40 U/L Alanine Aminotransferase (ALT) 11 7-40 U/L Alkaline Phosphatase 81 46-116 U/L B-Type Natriuretic Peptide 389.76 0-100 pg/mL Total Protein 6.7 5.7-8.2 g/dL Albumin 4.5 3.2-4.8 g/dL Assessment - hyperkalemia 5.2 -bilateral lower extremity edema -chronic congestive heart failure -chronic oxygen-dependent COPD -chronic kidney disease stage 4 Patient was seen and evaluated in ER lobby with patients consent. Patient's chart was reviewed in it's entirety. Including lab work, imaging, review of medication, EKG and physical assessment. CBC unremarkable: 9.4, H&H 12.3/37.2, PLT 199. CMP: Na 145, K5.2, BUN 26, creatinine 1.76, GFR 29, albumin 4.5, BNP 389, troponin negative 04/17. Chest x-ray was interpreted per the radiologist and reviewed by myself. Impression reads mild pulmonary vascular congestion. Mild cardiomegaly. No focal consolidations. While in the emergency department, the patient has remained hemodynamically stable. Temperature 98.8, HR 63, BP 1 13/74, RR 20, oxygen saturation 95% on 2LNC. Also reviewed results from previous stress test conducted per cardiology earlier this year. On physical examination, patient is alert and oriented times three. Pulmonary estrada there is present air exchange without Ronchi, rales or wheezing. Patient is not requiring an increase in supplemental oxygen as she is at her baseline. Bilateral lower extremities are noted to have nonpitting edema. Plan/Recommendation HMO onsite case manager Letha has been consulted to establish Home safety evaluation, urgent cardiac follow-up with echocardiogram. We will also set up an appointment with Nephrology. Patient will be sent home with a prescription for Bumex 1 mg tablet twice a day. I have also instructed the patient to stop taking her potassium for the next 3-4 days untill repeat labs are drawn. Patient will be set up with a follow-up visit at [facility] urgent care to check BMP and potassium levels. Prior to being discharged I did order a dose of Bumex 2 mg oral. I discussed outpatient follow up with emergency department provider Micha SHIPLEY, who has agreed to depart the patient and send a prescription for Bumex with the patient. Patient was provided with strict ER precautions, including, but not limited to dizziness, syncope, shortness of breath, chest pain, palpitations, hypotension, abdominal pain, dysuria, worsening swelling of the legs. If any of these occur, she has been instructed to return to the nearest emergency department for further evaluation and treatment Plan discussed with: Patient LAURYN CAMARA MD 05/23/25 1326: Family History: Patient reports no known family medical history. Allergies: Coded Allergies: Acetaminophen (Verified Allergy, Unknown, 10/14/24) Aspirin (Verified Allergy, Unknown, 10/14/24) Hydrocodone (Verified Allergy, Unknown, 10/14/24) Latex (Verified Allergy, Unknown, 10/14/24) Penicillins (Verified Allergy, Unknown, 10/14/24) Home Meds Active Scripts Bumetanide (Bumetanide) 2 Mg Tab, 1 MG PO BID for 14 Days, #28 TAB Prov:AARON RUIZ 05/23/25 Methylprednisolone (Medrol Dosepak) 4 Mg Keegan, 4 MG PO UD, #21 TAB UAD Prov:DARREN ROBERTSON MD 12/01/23 Doxycycline Hyclate (DOXYCYCLINE HYCLATE) 100 Mg Tab, 1 TAB PO BID, #14 TAB Prov:DARREN ROBERTSON MD 12/01/23 Reported Medications Simvastatin (Simvastatin) 20 Mg Tab, 20 MG PO for HIGH CHOLESTEROL, TAB 11/28/23 Famotidine (PEPCID TABLET) 20 Mg Tb, 1 TAB PO BID for ACID NURSING CLERK, #60 TAB 5 Refills 11/28/23 Cdzkrtgoeop-Cxnxilfmjevw-Riviw (Trelegy Ellipta 100-62.5-25 Mcg/INH) 1 Aer Aer, 1 AER IN for LUNGS, AER 11/28/23 Ascorbic Acid (VITAMIN C TABLET) 500 Mg Tb, 1 TAB PO DAILY for SUPPLEMENT, #30 T AB 3 Refills 11/28/23 Clopidogrel Bisulfate (Plavix) 75 Mg Tab, 1 TAB PO DAILY for BLOOD THINNER, #90 TAB 1 Refill 11/28/23 Sertraline Hcl (Zoloft) 25 Mg Tab, 1 TAB PO DAILY for ANXIETY, #30 TAB 2 Refills 11/28/23 Furosemide (Lasix) 40 Mg Tab, 40 MG PO DAILY for WATER PILL, TAB 11/03/18 Cholecalciferol (VITAMIN D3) 2,000 Unit Tab, 1 TAB PO DAILY for VITAMIN, #90 TAB 3 Refills 07/04/17 Potassium Chloride (POTASSIUM CHLORIDE CR) 10 Meq Tb, 20 MEQ PO DAILY 07/04/17 Pantoprazole Sodium Sesquihydr (Protonix) 40 Mg Tab, 40 MG PO DAILY for ACID NURSING CLERK, #30 TAB 07/04/17 Aspirin (Aspirin) 325 Mg Tab, 325 MG PO DAILY for BLOOD THINNER, TAB 07/04/17 Additional Comments Additional Comments Additional Comments Patient's chart is reviewed and discussed with nurse practitioner. I agree with nurse practitioner's evaluation, documentation, assessment and care plan as outlined. CHRISTIE BERG NP May 23, 2025 04:54 LAURYN CAMARA MD May 23, 2025 13:26
[2025-05-23] MEDS: BUMETANIDE 1 MG TAB PO ONE (05:00)
[2025-05-23] MEDS ORDERED: BUME2TAB5 PO (05:10)
[2025-05-23 05:45] VITALS: BP 147/70; PULSE 70; RESP 20; TEMP 97.9; O2SAT 96
--- NOTE | 2025-05-23 09:17 | ECG ---
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
== END 2025-05-23 05:57 | disposition home or self-care (01) ==
LOC: ER 21:25
DX: I13.0 Hypertensive heart and chronic kidney disease with heart failure and stage 1 through stage 4 chronic kidney disease, or unspecified chronic kidney disease (principal); I50.9 Heart failure, unspecified; N18.9 Chronic kidney disease, unspecified; R60.0 Localized edema; K21.9 Gastro-esophageal reflux disease without esophagitis; E78.5 Hyperlipidemia, unspecified; F32.A Depression, unspecified; J44.9 Chronic obstructive pulmonary disease, unspecified; Z79.01 Long term (current) use of anticoagulants; Z79.02 Long term (current) use of antithrombotics/antiplatelets; Z79.82 Long term (current) use of aspirin; Z79.899 Other long term (current) drug therapy; Z86.73 Personal history of transient ischemic attack (TIA), and cerebral infarction without residual deficits; Z88.0 Allergy status to penicillin; Z88.5 Allergy status to narcotic agent; Z88.6 Allergy status to analgesic agent; Z99.81 Dependence on supplemental oxygen
CPT/HCPCS: 36415; 71046; 80053; 83880; 84484; 85025; 93005